=== PATIENT | male | born 1970 | race Caucasian/White ===

== ENCOUNTER → 2016-05-30 | Outpatient (CLI) | payer OTHER ==
--- NOTE | 2016-05-30 10:09 | US ---
Sonography Limited to the Right Upper Quadrant of the Abdomen CLINICAL HISTORY: 45-year-old male with right upper quadrant pain. ICD 10 Diagnostic Code: R 10.11. TECHNIQUE: A curvilinear 5 MHz transducer was used to sonographically evaluate the right upper quadra nt of the abdomen. Color Doppler was used. COMPARISON STUDY: Right upper quadrant abdominal sonography, dated September 30, 2013. FINDINGS: The pancreatic contour is normal. There is mild increased echogenicity consistent with some fatty infiltration of the pancreas. The abdominal aorta is normal in size, and tapers normally. The visualized IVC is normal in caliber. The hepatic vein trifurcation is normal. The main portal vein is patent. The liver is borderline-enlarged, measuring 17.9 cm along the right midaxillary line. There is also increased echogenicity of the liver diffusely, consistent with fatty infiltration (steatosis) . There is some focal fat-sparing seen in the right hepatic lobe on image 21, which is seen retrospec tively on image 20 from the September 2013 study and is unchanged. There is also some stable focal fat-spa ring near the gallbladder fossa on image 39, also unchanged from prior image 28. There is no intra or extrahepatic bile duct dilatation. The common bile duct measures 3.1 mm. The gallbladder is moderat rand distended, and there is no evidence of cholelithiasis, polyp, wall thickening, pericholecystic fl uid, or sonographic Felix sign. When the patient was placed in a left lateral decubitus position, th ere was a small focus of dependent sludge observed. The right kidney is normal in size, shape, and co ntour, with a normal renal cortical thickness, and no focal renal mass or hydronephrosis, and measure s 9.8 x 6.2 x 5.8 cm. The right renal cortical thickness is 1.8 cm.. There is no ascites or right ple ural effusion. IMPRESSION: 1. Borderline-hepatomegaly with moderate diffuse steatosis and stable areas of focal fat-sparing, sim ilar to September 30, 2013. 2. Mild fatty infiltration of the pancreas. 3. Small focus of gallbladder sludge with no cholelithiasis, cholecystitis, or bile duct dilatation.
== END ==
LOC: FIMAGING 09:06
PROVIDERS: ATTEND Family Medicine
DX: R16.0 Hepatomegaly, not elsewhere classified (principal); K76.0 Fatty (change of) liver, not elsewhere classified; K87 Disorders of gallbladder, biliary tract and pancreas in diseases classified elsewhere

== ENCOUNTER → 2016-06-10 | Outpatient (CLI) | payer OTHER | LOC: FIMAGING 09:13 | PROVIDERS: ATTEND Family Medicine | PROC: CF1CYZZ Planar Nuclear Medicine Imaging of Hepatobiliary System, All using Other Radionuclide (ICD-10-PCS; principal; 2016-06-10) | DX: R10.11 Right upper quadrant pain (principal); K21.9 Gastro-esophageal reflux disease without esophagitis | CPT/HCPCS: 78227; A9537 ==

== ENCOUNTER → 2017-03-09 | Outpatient (CLI) | payer OTHER | LOC: BMCIMAGING 09:07 | PROVIDERS: ATTEND Physician Assistant | DX: M25.561 Pain in right knee (principal); M79.89 Other specified soft tissue disorders ==